=== PATIENT | male | born 1960 | race Caucasian/White ===

== ENCOUNTER → 2016-11-21 | Outpatient (CLI) | payer OTHER ==
--- OUTSIDE RECORDS SUMMARY | 2016-11-21 15:49 | XMS REPORT ---
Author Author RAKAN KOCH Organization [employer] Address Unknown Phone Unavailable Care Team Providers Care Incident Response Specialist Name Role Phone RAKAN KOCH CP Unavailable Allergies, Adverse Reactions, Alerts Substance Reaction Event Type Codeine Phosphate Info Not Available Drug Allergy Problems Problem Type Condition Code Onset Dates Condition Status Problem Essential hypertension I10 Active Problem Mood disorder F39 Active Problem Establishing care with new doctor, encounter for Z71.89 Active Assessment Mood disorder F39 Active Assessment Methamphetamine dependence in remission F15.21 Active Medications Medication Code System Code Instructions Start Date End Date Status Dosage Trintellix NDC 0 10 mg orally once a day Aug 08, 2016 1 tablet HydrOXYzine HCl [facility] [place] [address]-67 25 MG Orally every 8 hrs Aug 08, 2016 1 tablet as needed Lisinopril [facility] [place] [address]-76 10 mg Orally Once a day Jul 02, 2016 1 tablet Procedures Procedure Coding System Code Date Office Visit, Est Pt., Level 2 CPT-4 50796 Aug 08, 2016 Vital Signs Date/Time: Aug 08, 2016 Cardiac Monitoring Heart Rate 88 bpm Weight 219 lbs Height 68 in BMI 33.30 Index Blood Pressure Diastolic 80 mmHg Blood Pressure Systolic 140 mmHg Results No Known Results Summary Purpose [employer] Submission
--- NOTE | 2016-11-21 17:01 | Diagnostic Imaging Report ---
PROCEDURE: MRI left joint lower extremity without contrast. TECHNIQUE: Multiplanar, multisequence non contrast-enhanced MRI of the left lower extremity was accomplished. INDICATION: Chronic left knee pain. FINDINGS: The anterior and posterior cruciate ligaments are intact. The collateral ligaments are intact. There is a cortical defect consistent with old cortical fracture along the anterior weightbearing surface of the lateral. This measure approximately 1.3 cm. There is mild subcortical cystic change with loss of articulating cartilage along the anterior weightbearing surface of the medial femoral condyle, though no definite cortical fracture is demonstrated. 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 There is some medial tracking of the patella with loss of articulating cartilage and subcortical cystic changes along the medial patella. The patellar ligament is intact. Quadriceps tendon is intact. The medial meniscus shows complex tear involving the posterior horn with a large horizontal component. The anterior horn appears intact. Lateral meniscus is intact. There is moderate joint effusion present. No evidence of popliteal cyst. There is a meniscal cyst present, posteriorly and medially, measuring approximately 1 cm. The surrounding muscles and tendons appear normal. IMPRESSION: 1. Cortical defect along the weightbearing surface of the lateral femoral condyle. 2. There is loss of articulating cartilage with subcortical cystic change along the weightbearing surface of the medial femoral condyle. This measures approximately 14 mm in greatest dimension. There is associated complex tear of the posterior horn medial meniscus with a meniscal cyst present. 3. 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 4. Moderate joint effusion. Dictated by: Dictated on workstation # [id number]
== END ==
LOC: RAD 15:46
PROVIDERS: ATTEND Nurse Practitioner
DX: M23.8X2 Other internal derangements of left knee (principal)
CPT/HCPCS: 73721